=== PATIENT | male | born 1995 | race Caucasian/White ===

== ENCOUNTER → 2016-09-07 | Outpatient (CLI) | payer BC ==
--- NOTE | 2016-09-07 18:20 | CT ---
EXAMINATION TYPE: CT sinus wo con DATE OF EXAM: 09/07/2016 5:58 PM COMPARISON: NONE HISTORY: Pt states of difficulty breathing though nose. CT DLP: 603 mGycm Automated exposure control for dose reduction was used. FINDINGS: There is a 2 cm mucous retention cyst in the floor of the left maxillary sinus. There is bilateral pa tency of the ostiomeatal complex. There is some hypertrophy of the right side nasal turbinates compar ed to the left. Nasal septum deviates to the right side. There is mild mucosal thickening in the righ t anterior ethmoid air cells. Nasal bone is intact. Orbital margins are intact. There is no evidence of a fracture. The sphenoid sinus appears normal. I see no focal bone destruction. Maxilla is intact. IMPRESSION: THERE IS A MUCOUS RETENTION CYST IN THE LEFT MAXILLARY SINUS. RIGHT SIDE MILD ETHMOID SINUSITIS. RIGH T-SIDED NASAL TURBINATE HYPERTROPHY.
== END | disposition home or self-care (01) ==
LOC: RADCTMAIN 17:29
PROVIDERS: ATTEND Otolaryngology
DX: M27.40 Unspecified cyst of jaw (principal); J32.2 Chronic ethmoidal sinusitis; J34.3 Hypertrophy of nasal turbinates
CPT/HCPCS: 70486

== ENCOUNTER 2017-05-09 22:09 | Emergency (ER) | payer BC ==
[2017-05-09 22:29] VITALS: BP 140/81; PULSE 86; RESP 18; TEMP 98.6
[2017-05-09] MEDS ORDERED: IBUPROFEN 600 MG STARTER PACK 4 TAB BTL PO STA (22:57)
[2017-05-09] MEDS ORDERED: CLINDAMYCIN 150 MG CAP PO STA (22:57)
--- NOTE | 2017-05-09 22:57 | ED ---
Skin/Abscess/FB HPI - General Chief complaint: Skin/Abscess/Foreign Body Stated complaint: Mouth Swelling Time Seen by Provider: 05/09/17 22:24 Source: patient Mode of arrival: ambulatory Limitations: no limitations - History of Present Illness Initial comments: 22-year-old male patient presents for evaluation of right upper lip abscess. Patient states that it started as a pimple on Monday, and states that has progressed into a large lump that is very painful and erythematous. 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 He states he tried applying Abreva without relief of symptoms. He states that he did initially try to pop the area however it became too painful for him to touch. He states his been feeling generally unwell. Denies any known fevers. Denies any nausea or vomiting. He states the area seemed to be worsening so he presented for evaluation. Patient denies any recent shortness breath, chest pain, abdominal pain, diarrhea, constipation, back pain, numbness , tingling, headache, visual changes, hematuria, dysuria, urinary frequency, urinary urgency, or any other complaints. - Related Data Previous Rx's Medication Instructions Recorded Clindamycin [Cleocin] 300 mg PO Q6H #80 capsule 05/09/17 Ibuprofen [Motrin] 600 mg PO Q8HR PRN #30 tab 05/09/17 Allergies Allergy/AdvReac Type Severity Reaction Status Date / Time sulfamethoxazole Allergy Rash/Hives Verified 05/09/17 22:29 [From Bactrim] trimethoprim [From Bactrim] Allergy Rash/Hives Verified 05/09/17 22:29 Review of Systems ROS Statement: Those systems with pertinent positive or pertinent negative responses have been documented in the HPI. ROS Other: All systems not noted in ROS Statement are negative. Past Medical History Past Medical History: No Reported History History of Any Multi-Drug Resistant Organisms: None Reported Past Surgical History: Orthopedic Surgery Additional Past Surgical History / Comment(s): Meniscus sx R knee, deviated septum sx Past Psychological History: No Psychological Hx Reported Smoking Status: Never smoker Past Alcohol Use History: Rare Past Drug Use History: None Reported General Exam Limitations: no limitations General appearance: alert, in no apparent distress, other (This is a well- developed, well-nourished adult male patient in no acute distress. Vital signs upon presentation her temperature 98.6F, pulse 86, respirations 18, blood pressure 140/81, pulse ox 100% on room air.) ENT exam: Present: normal exam, normal oropharynx, mucous membranes moist, other (Right upper lip abscess, erythematous, mild fluctuance. Approximately 1- 1/2 cm across.) Neck exam: Present: normal inspection. Absent: tenderness, meningismus, lymphadenopathy Respiratory exam: Present: normal lung sounds bilaterally. Absent: respiratory distress, wheezes, rales, rhonchi, stridor Cardiovascular Exam: Present: regular rate, normal rhythm, normal heart sounds. Absent: systolic murmur, diastolic murmur, rubs, gallop, clicks Neurological exam: Present: alert, oriented X3, CN II-XII intact Psychiatric exam: Present: normal affect, normal mood Skin exam: Present: warm, dry, intact, normal color. Absent: rash Course Vital Signs 05/09/17 22:25 Temperature 98.6 F Pulse Rate 86 Respiratory 18 Rate Blood Pressure 140/81 O2 Sat by Pulse 100 Oximetry Procedures - Incision & Drainage Consent Obtained: verbal consent Time Out Performed?: Yes Indication: Abscess, Performed puncture with 18g needle Site: lip Size (cm): 2 Anesthetic Used: lidocaine 1% Amount (mLs): 2 I&D Cleaning Method: Betadine Sterile Field Used?: No I&D Drainage Obtained: Pus, Blood Culture Obtained?: Yes Patient Tolerated Procedure: well Medical Decision Making - Medical Decision Making 22-year-old male patient presented for evaluation of abscess to his right upper lip. There was mild fluctuance noted. Area was punctured with an 18-gauge needle after proper cleansing and anesthetization. Did obtain a small amount of pus and blood from the wound. Culture was obtained. Patient was given ibuprofen and started on clindamycin here in the department. He was given a prescription for both these. He was instructed to apply warm compresses 20 minutes at a time 5-6 times per day. He was instructed to take this antibiotic with a probiotic or eat yogurt with live culture. He was instructed to follow up with his primary care physician for recheck in 1-2 days. He is instructed to return here immediately for any new, worsening, or concerning symptoms. Disposition Clinical Impression: Abscess Disposition: HOME SELF-CARE Condition: Good Instructions: Abscess (ED) Additional Instructions: Warm compresses 20 minutes at a time 5-6 times per day. Take antibiotics as directed. Take ibuprofen instructed. Follow-up with primary care physician for recheck in 1-2 days. Return here immediately for any new, worsening, or concerning symptoms. Prescriptions: Clindamycin [Cleocin] 300 mg PO Q6H #80 capsule Ibuprofen [Motrin] 600 mg PO Q8HR PRN #30 tab PRN Reason: Pain Referrals: None,Stated [Primary Care Provider] - 1-2 days Time of Disposition: 22:57
== END 2017-05-09 23:10 | disposition home or self-care (01) ==
LOC: EC 22:09
DX: K13.0 Diseases of lips (principal); Z88.2 Allergy status to sulfonamides
CPT/HCPCS: 10060; 87070; 87077; 87186; 87205; 99283

== ENCOUNTER 2017-10-06 17:41 | Emergency (ER) | payer BC ==
[2017-10-06 17:49] VITALS: BP 154/83; PULSE 82; RESP 17; TEMP 98.5
--- NOTE | 2017-10-06 18:12 | ED ---
General Adult HPI - General Chief complaint: Back Pain/Injury Stated complaint: Back pain Time Seen by Provider: 10/06/17 18:04 Source: patient, RN notes reviewed Mode of arrival: ambulatory Limitations: no limitations - History of Present Illness Initial comments: 22 yo male presents to the emergency department with a chief complaint of left- sided back pain. Patient was moving a crate and felt pain in the back. He states that slowly eased up at this time but he was concerned. He denies any radiation of the legs. denies any loss of bowel or bladder function. He denies any falls or traumas to the area. They're concerned due to the continued pain so they thought they should be seen. No history of issues with back in the past. He states certain movement makes it worse.Patient denies any recent fever , chills, shortness of breath, chest pain, abdominal pain, nausea vomiting, numbness or tingling, dysuria or hematuria, constipation or diarrhea, headaches or visual changes, or any other current symptoms. - Related Data Previous Rx's Medication Instructions Recorded Clindamycin [Cleocin] 300 mg PO Q6H #80 capsule 05/09/17 Ibuprofen [Motrin] 600 mg PO Q8HR PRN #30 tab 05/09/17 Cyclobenzaprine [Flexeril] 5 mg PO TID #15 tablet 10/06/17 Ibuprofen [Motrin] 600 mg PO Q6HR PRN #20 tab 10/06/17 Allergies Allergy/AdvReac Type Severity Reaction Status Date / Time sulfamethoxazole Allergy Rash/Hives Verified 10/06/17 17:45 [From Bactrim] trimethoprim [From Bactrim] Allergy Rash/Hives Verified 10/06/17 17:45 Review of Systems ROS Statement: Those systems with pertinent positive or pertinent negative responses have been documented in the HPI. ROS Other: All systems not noted in ROS Statement are negative. Past Medical History Past Medical History: No Reported History History of Any Multi-Drug Resistant Organisms: MRSA Date of last positivie culture/infection: 05/09/17 MDRO Source:: lip Past Surgical History: Orthopedic Surgery Additional Past Surgical History / Comment(s): Meniscus sx R knee, deviated septum sx Past Psychological History: No Psychological Hx Reported Smoking Status: Never smoker Past Alcohol Use History: Rare Past Drug Use History: None Reported General Exam Limitations: no limitations General appearance: alert, in no apparent distress ENT exam: Present: normal exam, mucous membranes moist Neck exam: Present: normal inspection. Absent: tenderness, meningismus, lymphadenopathy Respiratory exam: Present: normal lung sounds bilaterally. Absent: respiratory distress, wheezes, rales, rhonchi, stridor Cardiovascular Exam: Present: regular rate, normal rhythm, normal heart sounds. Absent: systolic murmur, diastolic murmur, rubs, gallop, clicks Back exam: Present: normal inspection, full ROM, tenderness ((Spinal), other ( Negative straight leg raise). Absent: vertebral tenderness, rash noted Neurological exam: Present: alert, oriented X3 Psychiatric exam: Present: normal affect, normal mood Skin exam: Present: warm, dry, intact, normal color. Absent: rash Course Vital Signs 10/06/17 17:45 Temperature 98.5 F Pulse Rate 82 Respiratory 17 Rate Blood Pressure 154/83 O2 Sat by Pulse 98 Oximetry Medical Decision Making - Medical Decision Making 22-year-old male presents for left-sided back pain. This time it appears patient most likely has a lumbar strain. This time we will start him on Motrin muscle axes for home. We did discuss heating pad we discussed follow-up we discussed return parameters all questions. He stated that he understood and he is given this plan. All questions have been answered. He will be discharged. Disposition Clinical Impression: Strain of lumbar region Disposition: HOME SELF-CARE Condition: Stable Instructions: Lower Back Exercises (ED), Low Back Strain (ED) Additional Instructions: Please use medication as discussed. Please follow up with family doctor if symptoms have not improved over the next two days. Please return to the emergency room if your symptoms increase or worsen or for any other concerns. Prescriptions: Cyclobenzaprine [Flexeril] 5 mg PO TID #15 tablet Ibuprofen [Motrin] 600 mg PO Q6HR PRN #20 tab PRN Reason: Pain Referrals: Isabel Bernal MD [Primary Care Provider] - 1-2 days Time of Disposition: 18:11
== END 2017-10-06 18:20 | disposition home or self-care (01) ==
LOC: EC 17:41
DX: S39.012A Strain of muscle, fascia and tendon of lower back, initial encounter (principal); Z88.1 Allergy status to other antibiotic agents; Z86.14 Personal history of Methicillin resistant Staphylococcus aureus infection; X58.XXXA Exposure to other specified factors, initial encounter; Y93.89 Activity, other specified
CPT/HCPCS: 99283

== ENCOUNTER → 2018-11-09 | Outpatient (CLI) | payer BC ==
--- NOTE | 2018-11-09 13:08 | US ---
EXAMINATION TYPE: US thyroid st tissue head/neck DATE OF EXAM: 11/09/2018 COMPARISON: NONE CLINICAL HISTORY: R22.1 Neck mass. palpable area lateral right neck for years, patient states it gets larger. no infection now 2 lymph nodes located right next to each other: #1 = 1.7 x 1.1 x 0.8cm, vascularity seen, #2 = 1.5 x 0.9 x 0.7cm, vascularity noted. IMPRESSION: Mildly prominent lymph nodes at the site of clinical concern. Correlate clinically.
== END ==
LOC: RADUSWWP 12:20
PROVIDERS: ATTEND Otolaryngology
DX: R22.1 Localized swelling, mass and lump, neck (principal)
CPT/HCPCS: 76536

== ENCOUNTER → 2018-11-23 | Day surgery (SDC) | payer BC ==
[2018-11-23 13:07] VITALS: BP 133/74; PULSE 76; RESP 16; TEMP 98.1
--- NOTE | 2018-11-24 10:02 | US ---
EXAMINATION TYPE: US FNA first lesion DATE OF EXAM: 11/23/2018 COMPARISON: NONE HISTORY: Submandibular mass on the right FINDINGS: Maximal barrier technique was utilized. The skin overlying a suitable path to the patient's mass was localized under ultrasound. The overlying skin was prepped and draped. Lidocaine used for local an esthesia and a 25-gauge needle was advanced into the right submandibular mass under ultrasound guidan ce. Aspirated specimen submitted to cytology. Three additional passes were made using similar techn ique. Following the procedure no immediate complication. The patient remained in stable condition a nd was discharged. IMPRESSION: Status post ultrasound guided fine-needle aspiration of right submandibular mass. Pathol ogy is pending. This procedure performed by the undersigned.
== END ==
LOC: RADPROMAIN 12:25
PROVIDERS: ATTEND Otolaryngology
DX: R22.1 Localized swelling, mass and lump, neck (principal)
CPT/HCPCS: 10005; 88173; 88305

== ENCOUNTER 2019-04-11 15:15 | Emergency (ER) | payer BC ==
[2019-04-11 15:19] VITALS: RESP 20; TEMP 98.1
[2019-04-11] MEDS ORDERED: LIDOCAINE 1% INJ 10MG/ML (20 ML MDV) SQ ONE (15:29)
[2019-04-11] MEDS ORDERED: DIPH,PERTUS(ACELL)TETVAC-LF 0.5 ML VIAL IM ONE (15:29)
--- NOTE | 2019-04-11 15:49 | XR ---
EXAMINATION TYPE: XR wrist complete RT DATE OF EXAM: 04/11/2019 CLINICAL HISTORY: Laceration injury with pain rule out foreign body TECHNIQUE: Frontal, lateral, scaphoid, and oblique images of the right wrist are obtained. COMPARISON: None FINDINGS: There is no acute fracture/dislocation evident in the right wrist. The joint spaces in th e right wrist appear within normal limits. The overlying soft tissue appears unremarkable without montiel spicious radiodense foreign body seen.. IMPRESSION: As above.
--- NOTE | 2019-04-11 16:40 | ED ---
General Adult HPI - General Chief complaint: Wound/Laceration Stated complaint: wrist laceration Time Seen by Provider: 04/11/19 15:21 Source: patient, RN notes reviewed Mode of arrival: ambulatory Limitations: no limitations - History of Present Illness Initial comments: 24-year-old male presents for laceration to the right wrist. Patient was moving sheet metal when a top piece slid and cut his right wrist. Denies any difficulty moving the hand or any numbness in the hand. Denies any other injuries. Patient is not up-to-date on tetanus.Patient has no other complaints at this time including shortness of breath, chest pain, abdominal pain, nausea or vomiting, headache, or visual changes. - Related Data Home Medications Medication Instructions Recorded Confirmed Montelukast [Singulair] 10 mg PO DAILY 11/15/18 11/23/18 Allergies Allergy/AdvReac Type Severity Reaction Status Date / Time sulfamethoxazole Allergy Rash/Hives Verified 04/11/19 15:19 [From Bactrim] trimethoprim [From Bactrim] Allergy Rash/Hives Verified 04/11/19 15:19 Review of Systems ROS Statement: Those systems with pertinent positive or pertinent negative responses have been documented in the HPI. ROS Other: All systems not noted in ROS Statement are negative. Past Medical History Past Medical History: No Reported History Additional Past Medical History / Comment(s): "lump" under jaw History of Any Multi-Drug Resistant Organisms: MRSA Date of last positivie culture/infection: 05/09/17 MDRO Source:: lip Past Surgical History: Orthopedic Surgery Additional Past Surgical History / Comment(s): Meniscus sx R knee, deviated sep telma sx Past Anesthesia/Blood Transfusion Reactions: No Reported Reaction Past Psychological History: No Psychological Hx Reported Smoking Status: Never smoker Past Alcohol Use History: Rare Past Drug Use History: None Reported - Past Family History Mother Family Medical History: No Reported History General Exam Limitations: no limitations General appearance: alert, in no apparent distress Head exam: Present: atraumatic, normocephalic, normal inspection Eye exam: Present: normal appearance, PERRL, EOMI. Absent: scleral icterus, conjunctival injection, periorbital swelling ENT exam: Present: normal exam, mucous membranes moist Neck exam: Present: normal inspection. Absent: tenderness, meningismus, lymphadenopathy Respiratory exam: Present: normal lung sounds bilaterally. Absent: respiratory distress, wheezes, rales, rhonchi, stridor Cardiovascular Exam: Present: regular rate, normal rhythm, normal heart sounds. Absent: systolic murmur, diastolic murmur, rubs, gallop, clicks Extremities exam: Present: full ROM (full range of motion of the right wrist and all digits of the right hand. Stonemason Supervisor strength 5 out of 5.), normal capillary refill (Capillary refill less than 2 seconds, radial pulse 2+ in the right upper extremity.), other (3 cm laceration noted along the ulnar aspect of the distal right forearm. No obvious foreign bodies evident. No evidence for deep structure or tendon injury.). Absent: tenderness, pedal edema, joint swelling, calf tenderness Course Vital Signs 04/11/19 15:16 Temperature 98.1 F Pulse Rate 113 H Respiratory 20 Rate Blood Pressure 166/94 O2 Sat by Pulse 100 Oximetry Procedures - Laceration Laceration #1 Consent Obtained: verbal consent Indication: laceration Site: upper extremity Size (cm): 3 Description: linear Depth: simple, single layer Anesthetic Used: lidocaine 1% Anesthesia Technique: local infiltration Amount (mls): 5 Pre-repair: wound explored, irrigated extensively (With saline pressure irrigation), deep structures intact Type of Sutures: other (Ethilon) Size of Sutures: 5-0 Number of Sutures: 5 Patient Tolerated Procedure: well, no complications Medical Decision Making - Medical Decision Making 24-year-old male presents to the emergency department for chief: Of laceration. This occurred approximately one hour prior to arrival. Tetanus was updated. X- ray negative for foreign body. Exam is unremarkable, no evidence of foreign body or deep structure injury. Full range of motion of the right hand and neurovascular status intact. Wound was cleaned thoroughly with saline pressure irrigation and sutured with 5 simple interrupted sutures. Discussed return precautions in depth including ulcer infection. Discussed returning here if he has any worsening symptoms. Disposition Clinical Impression: Laceration Disposition: HOME SELF-CARE Condition: Good Instructions (If sedation given, give patient instructions): Laceration (ED), Care For Your Stitches (ED) Additional Instructions: Please follow up with primary care in 1-2 days for wound recheck. If you notice any signs of infections such as spreading or streaking redness, drainage, fever return to the emergency department. Return if you have any other worsening symptoms. Return in 7-10 days for suture removal. Is patient prescribed a controlled substance at d/c from ED?: No Referrals: Astrid Mera MD [REFERRING] - 1-2 days Time of Disposition: 16:40
[2019-04-11 16:58] VITALS: BP 132/67; PULSE 82
== END 2019-04-11 16:58 | disposition home or self-care (01) ==
LOC: EC 15:15
DX: S61.511A Laceration without foreign body of right wrist, initial encounter (principal); Z88.2 Allergy status to sulfonamides; Z86.14 Personal history of Methicillin resistant Staphylococcus aureus infection; Z23 Encounter for immunization; W26.8XXA Contact with other sharp object(s), not elsewhere classified, initial encounter; Y93.89 Activity, other specified; Y92.009 Unspecified place in unspecified non-institutional (private) residence as the place of occurrence of the external cause
CPT/HCPCS: 73110; 90715; 99283; 12002; 90471; J2001

== ENCOUNTER 2021-03-11 08:56 | Day surgery (SDC) | payer BC ==
[2021-03-11 09:12] VITALS: BP 124/77; PULSE 63; RESP 16; TEMP 98
--- NOTE | 2021-03-11 10:04 | US ---
EXAMINATION TYPE: US thyroid st tissue head/neck DATE OF EXAM: 03/11/2021 COMPARISON: soft tissue neck US CLINICAL HISTORY: E04.1 thyroid nodule, R22. 1 swelling of neck. Patient stated has allergies. GLAND SIZE: Right Lobe: 5.3 x 1.9 x 1.3 cm Overall Parenchyma: homogenous Left Lobe: 4.1 x 1.7 x 1.6 cm Overall Parenchyma: homogeneous Isthmus Thickness: 0.2 cm NODULES RIGHT: # of nodules measured on right: 0 LEFT: # of nodules measured on left: 1 1. 0.3 X 0.2 x 0.2 cm, lower mid pole,mixed cystic and solid, hypoechoic nodule, which is wider as is tall, with smooth margins, without echogenic foci. ISTHMUS: # of nodules measured in the isthmus: 0 Bilateral neck scanned: multiple lymph nodes seen superior to right thyroid with largest = 3.2 x 1.5 x 0.9cm.Couple of left upper neck lymph nodes seen with larger = 2.0 x 1.12 x 0.7cm. IMPRESSION: There is a subcentimeter 3 mm left thyroid nodule. Multiple lymph nodes are seen compatible shotty ad enopathy in the upper left neck and superior the right thyroid as measured above. 2017 ACR TI-RADS LEVEL: TR-RADS 3 - Mildly Suspicious: Follow if > 1.5 cm, FNA if > 2.5 cm *Highest TI-RADS level nodule reported
--- NOTE | 2021-03-11 11:28 | US ---
ULTRASOUND GUIDED FNA RIGHT SUBMANDIBULAR LYMPH NODE BIOPSY: CLINICAL HISTORY: Right submandibular lymph node FINDINGS: The procedure was explained to the patient. The risks, complications, benefits and alternatives were discussed and any questions were answered. Informed consent was obtained. Patient was placed supin e on the ultrasound table and prepped and draped in the usual sterile fashion. Utilizing a 25 gauge needle, five passes were made into the requested right submandibular lymph node. Patient was stable throughout the procedure. Pathology is pending. All elements of maximal barrier technique were utilized. IMPRESSION: 1. Successful ultrasound guided FNA right submandibular lymph node biopsy.
== END 2021-03-11 10:25 | disposition home or self-care (01) ==
LOC: RADPROMAIN 08:56
PROVIDERS: ATTEND Otolaryngology
DX: E04.1 Nontoxic single thyroid nodule (principal)
CPT/HCPCS: 10005; 76536; 88173; 88305

== ENCOUNTER → 2024-04-17 | Outpatient (CLI) | payer BC ==
--- NOTE | 2024-04-18 12:53 | US ---
EXAMINATION TYPE: US thyroid st tissue head/neck DATE OF EXAM: 04/17/2024 COMPARISON: US 2020 CLINICAL INDICATION: Male, 29 years old with history of R22.1 LOCALIZED SWELLING, MASS AND LUMP, NECK ; Soft tissue scan, palpable area. Patient had FNA in 2020. TECHNIQUE: Scanned right neck at patient's palpable area of concern. FINDINGS: *Hypoechoic area seen measuring 3.6 x 2.4 x 1.0 cm an area of palpable abnormality. No org anizing fluid collections. IMPRESSION: Hypoechoic area seen within the right neck possibly representing enlarged lymph node. Com plete evaluation of the neck with CT with IV contrast could be performed for further evaluation of th e neck structures. Palpable marker placement recommended.. [facility], , 04/18/2024 12:51 PM
== END | disposition home or self-care (01) ==
LOC: RADUSWWP 14:59
PROVIDERS: ATTEND Family Medicine
DX: R22.1 Localized swelling, mass and lump, neck (principal)
CPT/HCPCS: 76536